=== PATIENT | male | born 1955 | race Caucasian/White ===

== ENCOUNTER 2020-06-07 16:20 | Observation (INO) | payer SELFPAY ==
[~2020-06-07] VITALS: Ht 180.3 cm; Wt 75.5 kg
[~2020-06-07 16:20] MED LIST: ABAC300; AMLO5 PO; AMOCLA875 PO; ASPI325; ASPI325 PO; CEPH500 PO; CIPRO500 MG PO; DICL25ER; DICL75ER PO; ESOM20 PO; Flagyl500 MG PO; HYDACE10B PO; HYDACE5 PO; HYDR1TAB94 PO; HYDRA25 PO; LISI20 PO; LISI5 PO; LISINOPRIL PO; MESA250ER PO; METR500 PO; Norco 10-325 T1 EACH PO; Norco 5-325 Ta1 EACH PO; OXYC5; Omeprazole20 M1 PO; PROM25 PO; Prilosec Otc20 MG PO; Roxicodone5 MG PO; SACC250C PO; SUCR1 PO; TADA10TA PO; VANC250 PO; Vancocin HCl250 MG PO; Zofran Odt4 MG SL
[2020-06-07 16:52] LABS: BASOPHILS ABSOLUTE AUTO 0.12 K/mm3 (0.00-0.23); BASOPHILS PERCENT AUTO 2 % (0-2); EOSINOPHILS ABSOLUTE AUTO 0.32 K/mm3 (0.00-0.68); EOSINOPHILS PERCENT AUTO 5 % (0-6); Hematocrit 42.4 % (37.0-53.0); IMMATURE GRAN ABSOLUTE AUTO 0.03 K/mm3 (0.00-0.10); IMMATURE GRAN PERCENT AUTO 0 % (0-1); LYMPHOCYTES ABSOLUTE AUTO 1.93 K/mm3 (0.84-5.20); LYMPHOCYTES PERCENT AUTO 29 % (21-46); MONOCYTES ABSOLUTE AUTO 0.68 K/mm3 (0.16-1.47); MONOCYTES PERCENT AUTO 10 % (4-13); Mean Corpuscular HGB 35.6 pg (26.0-34.0); Mean Corpuscular Volume 108 fL (80-100); Mean Platelet Volume 10.2 fL (9.1-12.4); NEUTROPHILS PERCENT AUTO 54 % (41-73); Platelet Count 214 K/mm3 (150-400); RDW Coefficient Variation 12.8 % (11.7-14.2); RDW Standard Deviation 51.4 fL (35.1-46.3); Red Blood Cell Count 3.93 M/mm3 (4.30-5.90); White Blood Cell Count 6.68 K/mm3 (4.00-11.30)
[2020-06-07 17:13] LABS: Alanine Aminotransfer (ALT/SGP 27 U/L (12-78); Albumin, Blood 2.7 g/dL (3.4-5.0); Albumin/Globulin Ratio 0.6 (0.8-1.8); Alk Phos 100 U/L (50-136); Anion Gap 9 mmol/L (6-16); Aspartate Aminotrans (AST/SGOT 47 U/L (12-37); Bilirubin, Total 0.4 mg/dL (0.1-1.0); Blood Urea Nitrogen 13 mg/dL (8-24); Bun/Creatinine Ratio 10.8 (12.0-20.0); CO2, Blood 24 mmol/L (21-32); Calcium, Blood 8.1 mg/dL (8.5-10.1); Chloride, Blood 106 mmol/L (98-108); Globulin, Blood 4.6 g/dL (2.2-4.0); Glomerular Filtration Rate >60 (60-); Glucose, Blood 105 mg/dL (70-99); Sodium, Blood 139 mmol/L (136-145); Total Protein, Blood 7.3 g/dL (6.4-8.2)
[2020-06-07 17:17] LABS: Ethanol (Alcohol), Blood, Med 311 mg/dL
[2020-06-07 18:58] LABS: Source, Urine Clean Catch
[2020-06-07 19:02] LABS: Appearance, Urine Clear (Clear); Bilirubin, Urine Neg (Neg); Blood, Urine Neg (Neg); Color, Urine Yellow (P-Yellow); Glucose Qualitative, Urine Neg (Neg); Ketones, Urine Neg (Neg); Leukocyte Esterase, Urine 2+ (Neg); Nitrite, Urine Neg (Neg); Protein, Urine Neg (Neg); Specific Gravity, Urine 1.015 (1.003-1.022); Urobilinogen, Urine NORM (Normal)
[2020-06-07 19:07] LABS: Bacteria Many /hpf; Red Blood Cells, Urine 0-2 /hpf (0-2); Squamous Epithelial Cells Few /hpf (Few)
[2020-06-07 19:15] LABS: U Amphetamine Screen Not Detected; U Barbituate Screen Not Detected; U Benzodiazapine Screen Not Detected; U Buprenorphine Screen Not Detected; U Cannabinoids Screen DETECTED; U Cocaine Screen Not Detected; U Methadone Screen Not Detected; U Methamphetamine Screen Not Detected; U Opiates Screen Not Detected; U Oxycodone Screen Not Detected; U Phencyclidine Screen Not Detected; U Propoxyphene Screen Not Detected
[2020-06-07 20:31] LABS: International Normalized Ratio 0.97; Prothrombin Time Results 10.4 Sec (9.7-11.5)
[2020-06-07] MEDS ORDERED: LISI20 PO (21:42)
[2020-06-07 21:44] LABS: Phosphorus, Blood 3.4 mg/dL (2.5-4.9)
--- NOTE | 2020-06-08 05:25 | NUR ---
PATIENT ARRIVED TO THE UNIT FROM ED. ORIGINALLY CAME WITH COMPLAINTS OF CP RELIEVED WITH NITRO BUT NO CP NOTED FOR MY SHIFT. HE STATES THAT HE IS LOOKING FORWARD TO GETTING ANSWERS IN THE MORNING ALTHOUGH HE'S UNAWARE OF THE PROCEDURE THAT HE IS NPO FOR. TROPONINS TRENDING UP, VSS, 1 MORE TROPONIN PENDING. CALL LIGHT WITHIN REACH, WILL CONTINUE TO MONITOR UNTIL END OF SHIFT.
[2020-06-08 08:32] LABS: BASOPHILS ABSOLUTE AUTO 0.05 K/mm3 (0.00-0.23); BASOPHILS PERCENT AUTO 1 % (0-2); EOSINOPHILS ABSOLUTE AUTO 0.23 K/mm3 (0.00-0.68); EOSINOPHILS PERCENT AUTO 3 % (0-6); Hematocrit 38.9 % (37.0-53.0); Hemoglobin 12.9 g/dL (13.5-17.5); IMMATURE GRAN ABSOLUTE AUTO 0.01 K/mm3 (0.00-0.10); IMMATURE GRAN PERCENT AUTO 0 % (0-1); LYMPHOCYTES ABSOLUTE AUTO 1.16 K/mm3 (0.84-5.20); LYMPHOCYTES PERCENT AUTO 15 % (21-46); MONOCYTES ABSOLUTE AUTO 0.84 K/mm3 (0.16-1.47); MONOCYTES PERCENT AUTO 11 % (4-13); Mean Corpuscular HGB 35.1 pg (26.0-34.0); Mean Corpuscular HGB Conc 33.2 g/dL (31.5-36.5); Mean Corpuscular Volume 106 fL (80-100); Mean Platelet Volume 10.1 fL (9.1-12.4); NEUTROPHILS ABSOLUTE AUTO 5.48 K/mm3 (1.96-9.15); NEUTROPHILS PERCENT AUTO 71 % (41-73); Platelet Count 179 K/mm3 (150-400); RDW Coefficient Variation 12.7 % (11.7-14.2); RDW Standard Deviation 49.7 fL (35.1-46.3); Red Blood Cell Count 3.67 M/mm3 (4.30-5.90); White Blood Cell Count 7.77 K/mm3 (4.00-11.30)
[2020-06-08 08:49] LABS: Anion Gap 8 mmol/L (6-16); Blood Urea Nitrogen 11 mg/dL (8-24); Bun/Creatinine Ratio 10.5 (12.0-20.0); CO2, Blood 24 mmol/L (21-32); Chloride, Blood 111 mmol/L (98-108); Creatinine, Blood 1.05 mg/dL (0.60-1.20); Glomerular Filtration Rate >60 (60-); Glucose, Blood 105 mg/dL (70-99); Potassium, Blood 4.5 mmol/L (3.5-5.5); Sodium, Blood 143 mmol/L (136-145)
--- NOTE | 2020-06-08 10:54 | NUR ---
echocardiogram complete
--- NOTE | 2020-06-08 16:26 | NUR ---
PT STATUS CHANGED TO MEDICAL WITH TELE. PT'S VITALS HAS BEEN STABLE FOR THE SHIFT HRR, NSR 90'S, BP SYSTOLIC 140'S, SATS ABOVE 95% ON ROOMAIR, DENIES CHEST PAIN SINCE THE BEGINNING OF THE SHIFT. TROP TRENDS LAST DRAWN 1300 0.126. LEXISCAN ORDER 1 DAY PROTOCOL. PT HAS SOME NAUSEA WITH SOME EMESIS THIS AM RELIVED BY ZOFRAN, ALSO HEAD ACHE RELIEVED BY TYLENOL. NO OTHER COMPLAINS. REPORT GIVEN TO ISIAH BAGLEY, PT TRANSFERRED TO 356 ALL BELONGINGS SENT WITH PT.
--- NOTE | 2020-06-08 17:49 | NUR ---
Shift Summary Patient arrived to unit at 1630 via w/c, independent in room. Calls for needs appropriately. SCD's and tele in place. Denies chest pain, however does c/o 6/10 headache. Will medicate per emar. Denies nausea and vomiting. Serial troponins completed. Patient is [place], no signs of CIWA. Plan for [place] Stress test with Lexiscan tomorrow 06/09/20. Patient settled to room with call light in reach. Will continue to monitor.
--- NOTE | 2020-06-08 22:39 | NUR ---
2040 PT LYING IN BED. DENIES ANY DISCOMFORT AT THIS TIME. PLACED SCD'S ON. NO OTHER APPARENT SIGNS OF DISTRESS. CALL LIGHT IS IN REACH.
--- NOTE | 2020-06-08 23:48 | NUR ---
PT LYING IN BED, AWAKE, DENIES NEED FOR ANYTHING AT THIS TIME. NO APPARENT SIGNS OF DISTRESS. CALL LIGHT IS IN REACH.
--- NOTE | 2020-06-09 01:46 | NUR ---
PT LYING IN BED, EYES CLOSED, APPEARS TO BE RESTING. BREATHING IS EVEN, UNLABORED. NO APPARENT SIGNS OF DISTRESS. CALL LIGHT IS IN REACH.
--- NOTE | 2020-06-09 03:34 | NUR ---
PT LYING IN BED, EYES CLOSED, APPEARS TO BE RESTING. BREATHING IS EVEN, UNLABORED. NO APPARENT SIGNS OF DISTRESS. CALL LIGHT IS IN REACH.
--- NOTE | 2020-06-09 03:35 | NUR ---
PT IS AAO X 4, ON RA. TELE SR AT 61. SCD'S. NO DISCOMFORT FOR THIS SHIFT.
--- NOTE | 2020-06-09 04:49 | NUR ---
PT REQUESTED AND RECIEVED TYLENOL FOR A HEADACHE, WILL EVAL FOR EFFECT. NO OTHER APPARENT SIGNS OF DISTRESS. CALL LIGHT IS IN REACH.
--- NOTE | 2020-06-09 05:40 | NUR ---
PT LYING IN BED, EYES CLOSED, APPEARS TO BE RESTING. BREATHING IS EVEN, UNLABORED. NO APPARENT SIGNS OF DISTRESS. CALL LIGHT IS IN REACH. NO OTHER CHANGES THIS SHIFT.
--- NOTE | 2020-06-09 05:54 | NUR ---
TELE CALLED, VOICED SHORT RUN OF V TACH. UPON ARRIVAL AT ROOM, PT APPEARED TO BE SLEEPING. HE AWAKENED, ALERT AND ORINETED, STATED "IM FINE", NO NOTED S/S ACUTE DISTRESS. CALL LIGHT IN REACH
--- NOTE | 2020-06-09 06:12 | NUR ---
0523 PCU PURCHASING DIRECTOR CALLED, PT HAD 8 SEC RUN OF VTACH THEN RYTHYM RETURNED TO SR AT 68. PT DENIED ANY SYMPTOMS. CALLED DR KAUR 1613, GOT ORDERS FOR METOPROLOL TARTRATE. WILL CONT TO MONITOR. NO OTHER APPARENT SIGNS OF DISTRESS. CALL LIGHT IN REACH.
--- NOTE | 2020-06-09 08:29 | NUR ---
VERIFIED WITH DR. QUINTERO THAT IT WAS OKAY TO GIVE BLOOD PRESSURE MEDS THIS MORNING INCLUDING METOPROLOL AND LISINOPRIL
--- NOTE | 2020-06-09 18:30 | NUR ---
Shift Summary Medicated for MONTES /10 per EMAR. Denies chest pain today. Instructed of NPO status after midnight and no caffeine, patient agreeable. PAM[place], able to understand staff better through reading lips. Up in room and in hallway independently. Pleasant to care for. Tele: NSR 70's. Macrobid on board for UTI coverage. Had shower today. Riosan scheduled for tomorrow 06/09. Will continue to monitor.
--- NOTE | 2020-06-10 06:46 | NUR ---
PT alert & active ambulating in halls multiple times without device. Denies s/sx of ETOH withdrawl or chest pain. NSR on tele completed 1st part of cardiac stress test. Medicated with tylenol for headache with helpful effect.
[2020-06-10] MEDS ORDERED: METO25 PO (18:05)
[2020-06-10] MEDS ORDERED: B-1100 M1 PO (18:06)
[2020-06-10] MEDS ORDERED: Nitrofurantoin100 M1 PO (18:06)
--- NOTE | 2020-06-10 19:03 | NUR ---
DISCHARGE INSTRUCTIONS COMPLETED AND DISCUSSED WITH PT EXPRESSING UNDERSTANDING. SCRIPTS FAXED TO [facility] TO [facility] PER HIS REQUEST.
== END 2020-06-10 18:43 | disposition home or self-care (01) ==
LOC: ER 16:20 → PCU 16:21 → ER 21:53 → PCU 21:56 → ER 21:57 → MEDS 06-08 16:26
PROVIDERS: Nurse Practitioner Acute Care; Physician Assistant; ADMIT Internal Medicine
DX: R07.9 Chest pain, unspecified (principal); R55 Syncope and collapse; N39.0 Urinary tract infection, site not specified; K21.9 Gastro-esophageal reflux disease without esophagitis; F10.129 Alcohol abuse with intoxication, unspecified; Z87.891 Personal history of nicotine dependence; Z79.899 Other long term (current) drug therapy; Z88.1 Allergy status to other antibiotic agents; Z79.82 Long term (current) use of aspirin; Y90.8 Blood alcohol level of 240 mg/100 ml or more; I10 Essential (primary) hypertension
CPT/HCPCS: 36415; 71045; 78452; 80048; 80053; 81001; 83735; 83880; 84100; 84484; 85025; 85610; 85730; 87077; 87086; 87186; 93005; 93010; 93017; 93306; 93880; 96360; 96361; 96374; 96376; 99285-25; A9270; A9270-GY; A9500; G0378; G0480; J2405; J2785; J7030

== ENCOUNTER 2021-07-11 13:17 | Observation (INO) | payer MEDICARE ==
[~2021-07-11] VITALS: Ht 177.8 cm; Wt 72.6 kg
[~2021-07-11 13:17] MED LIST changes: +B-1100 M1 PO; +METO25 PO; +Nitrofurantoin100 M1 PO
[2021-07-11 14:57] LABS: BASOPHILS ABSOLUTE AUTO 0.06 K/mm3 (0.00-0.23); BASOPHILS PERCENT AUTO 1 % (0-2); EOSINOPHILS ABSOLUTE AUTO 0.02 K/mm3 (0.00-0.68); EOSINOPHILS PERCENT AUTO 0 % (0-6); Hematocrit 41.1 % (37.0-53.0); Hemoglobin 14.3 g/dL (13.5-17.5); IMMATURE GRAN ABSOLUTE AUTO 0.05 K/mm3 (0.00-0.10); IMMATURE GRAN PERCENT AUTO 1 % (0-1); LYMPHOCYTES ABSOLUTE AUTO 0.66 K/mm3 (0.84-5.20); LYMPHOCYTES PERCENT AUTO 8 % (21-46); MONOCYTES ABSOLUTE AUTO 0.95 K/mm3 (0.16-1.47); MONOCYTES PERCENT AUTO 11 % (4-13); Mean Corpuscular HGB 38.1 pg (26.0-34.0); Mean Corpuscular HGB Conc 34.8 g/dL (31.5-36.5); Mean Corpuscular Volume 110 fL (80-100); Mean Platelet Volume 11.1 fL (9.1-12.4); NEUTROPHILS ABSOLUTE AUTO 6.62 K/mm3 (1.96-9.15); NEUTROPHILS PERCENT AUTO 79 % (41-73); Platelet Count 173 K/mm3 (150-400); RDW Coefficient Variation 13.1 % (11.7-14.2); Red Blood Cell Count 3.75 M/mm3 (4.30-5.90); White Blood Cell Count 8.36 K/mm3 (4.00-11.30)
[2021-07-11 15:07] LABS: Albumin, Blood 3.5 g/dL (3.4-5.0); Albumin/Globulin Ratio 0.7 (0.8-1.8); Bilirubin, Total 1.2 mg/dL (0.1-1.0); Calcium, Blood 8.9 mg/dL (8.5-10.1); Creatinine, Blood 2.46 mg/dL (0.60-1.20); Globulin, Blood 4.7 g/dL (2.2-4.0); Potassium, Blood 4.3 mmol/L (3.5-5.5); Total Protein, Blood 8.2 g/dL (6.4-8.2)
[2021-07-11 19:09] LABS: SARS-Cov-2 (COVID-19) PCR, MMC NEGATIVE (NEGATIVE)
[2021-07-11 19:56] LABS: PCO2 Arterial 25.1 mmHg (35-45); PO2 Arterial 82.9 mmHg (80-100); pH Blood Arterial 7.28 (7.35-7.45)
[2021-07-11 22:07] LABS: Source, Urine Clean Catch
[2021-07-11 22:17] LABS: Bilirubin, Urine Neg (Neg); Blood, Urine 2+ (Neg); Glucose Qualitative, Urine 2+ (Neg); Ketones, Urine 2+ (Neg); Leukocyte Esterase, Urine 2+ (Neg); Nitrite, Urine Neg (Neg); Protein, Urine 2+ (Neg); Urobilinogen, Urine NORM (Normal)
[2021-07-11 22:19] LABS: Appearance, Urine Clear (Clear); Color, Urine Yellow (P-Yellow)
[2021-07-11 22:23] LABS: Bacteria Many /hpf; Red Blood Cells, Urine 0-2 /hpf (0-2); Squamous Epithelial Cells Few /hpf (Few)
[2021-07-11 22:27] LABS: U Amphetamine Screen Not Detected; U Barbituate Screen Not Detected; U Benzodiazapine Screen Not Detected; U Buprenorphine Screen Not Detected; U Cannabinoids Screen DETECTED; U Cocaine Screen Not Detected; U Methadone Screen Not Detected; U Methamphetamine Screen Not Detected; U Opiates Screen DETECTED; U Oxycodone Screen Not Detected; U Phencyclidine Screen Not Detected; U Propoxyphene Screen Not Detected
--- NOTE | 2021-07-12 00:39 | NUR ---
ADMIT *LATE ENTRY* PT ARRIVED TO AROUND 2005 VIA W/C. PT ACTIVELY HAVING EMESIS UPON ARRIVAL, 350ML LIGHT GREEN/CLEAR/CLOUDY COLOR EMESIS. MEDICATED c ZOFRAN & PT HAD 300ML MORE OF EMESIS. CIWA 10 UPON ASSESSMENT FOR TREMORS, N/V & HEADACHE. GAVE ATIVAN PER ORDERS. HAS INSPIRATORY/EXPIRATORY WHEEZES, DENIES SOB. REPORTS CHRONIC 4/10 CP THAT COMES & GOES, PT HAD THIS CP UPON STANDING TO USE URINAL. WCTM.
[2021-07-12 03:09] LABS: BASOPHILS ABSOLUTE AUTO 0.03 K/mm3 (0.00-0.23); BASOPHILS PERCENT AUTO 0 % (0-2); EOSINOPHILS ABSOLUTE AUTO 0.01 K/mm3 (0.00-0.68); EOSINOPHILS PERCENT AUTO 0 % (0-6); Hematocrit 31.4 % (37.0-53.0); Hemoglobin 11.1 g/dL (13.5-17.5); IMMATURE GRAN ABSOLUTE AUTO 0.02 K/mm3 (0.00-0.10); IMMATURE GRAN PERCENT AUTO 0 % (0-1); LYMPHOCYTES PERCENT AUTO 8 % (21-46); MONOCYTES ABSOLUTE AUTO 1.04 K/mm3 (0.16-1.47); MONOCYTES PERCENT AUTO 14 % (4-13); Mean Corpuscular HGB 37.9 pg (26.0-34.0); Mean Corpuscular HGB Conc 35.4 g/dL (31.5-36.5); Mean Corpuscular Volume 107 fL (80-100); Mean Platelet Volume 10.1 fL (9.1-12.4); NEUTROPHILS ABSOLUTE AUTO 5.64 K/mm3 (1.96-9.15); NEUTROPHILS PERCENT AUTO 77 % (41-73); Platelet Count 132 K/mm3 (150-400); RDW Coefficient Variation 12.9 % (11.7-14.2); RDW Standard Deviation 50.8 fL (35.1-46.3); Red Blood Cell Count 2.93 M/mm3 (4.30-5.90); White Blood Cell Count 7.34 K/mm3 (4.00-11.30)
[2021-07-12 03:31] LABS: Bun/Creatinine Ratio 15.2 (12.0-20.0); Calcium, Blood 8.2 mg/dL (8.5-10.1); Creatinine, Blood 2.1 mg/dL (0.60-1.20); Potassium, Blood 4.2 mmol/L (3.5-5.5)
--- NOTE | 2021-07-12 06:31 | NUR ---
SHIFT SUMMARY ADMITTED FOR SYNCOPAL EPISODE. AOX4. VSS. TELE NSR @72. DENIED ANY FURTHER CP. HYPERACTIVE BT. NO FURTHER EMESIS AFTER ZOFRAN GIVEN. SPO2 >90% ON RA. HAS INSP/EXP WHEEZES T/O. REPORTS LAST ALCOHOLIC DRINK WAS ON 07/10/21. CIWA RANGING 1-10, FOR N/V, MONTES & TREMORS. LR RUNNING @75ML/HR. CALL LIGHT & BED ALARM IN PLACE.
--- NOTE | 2021-07-12 19:07 | NUR ---
PT HAS BEEN FRIENDLY AND PLEASANT ALL SHIFT. HAD MILD NAUSEA THIS MORNING, RESOLVED. NO COMPLAINTS OF PAIN, SOB, OR DIARREA. CALL LIGHT WITHIN REACH.
--- NOTE | 2021-07-13 05:47 | NUR ---
SHIFT SUMMARY AOX4 @HS. THIS AM PT STATES "WHAT TOWN AM I IN?" "WHY AM I AT THE HOSPITAL?" PT STATES HE FEELS CONFUSED, CIWA 9 FOR CONFUSION, MONTES & MILD TREMORS. GAVE 1MG IV ATIVAN, & TYLENOL. VSS. TELE NSR @72. PLAN TO HAVE ECHO & CAROTID DUPLEX TODAY. HAD NAUSEA & DRY HEAVE 1X, MEDICATED 1X c ZOFRAN. CALL LIGHT & BED ALARM IN PLACE. WCTM.
[2021-07-13] MEDS ORDERED: LISI5 PO (12:26)
[2021-07-13] MEDS ORDERED: Acetaminophen325 M1 PO (12:27)
[2021-07-13] MEDS ORDERED: METO25ER PO (12:32)
[2021-07-13] MEDS ORDERED: MULVITA PO (12:33)
[2021-07-13] MEDS ORDERED: PANT20 PO (12:34)
[2021-07-13] MEDS ORDERED: ONDA4ODT MM (12:34)
[2021-07-13] MEDS ORDERED: B-1100 M1 PO (12:35)
--- NOTE | 2021-07-13 14:30 | NUR ---
PATIENT D/C'D TO HOME VIA [facility]. RX MEDICATIONS FAXED TO [facility] IN [place]. [place] INSTRUCTIONS AND EDUCATION DISCUSSED WITH PATIENT AND COPY PROVIDED. PATIENT DENIES ANY FURTHER QUESITONS OR CONCERNS.
== END 2021-07-13 14:32 | disposition home or self-care (01) ==
LOC: ER 13:17 → ERHOLD 13:18 → MEDS 13:18
PROVIDERS: Student in an Organized Health Care Education/Training Program; ADMIT Internal Medicine
DX: R55 Syncope and collapse (principal); R07.89 Other chest pain; N17.9 Acute kidney failure, unspecified; I10 Essential (primary) hypertension; K21.9 Gastro-esophageal reflux disease without esophagitis; H91.10 Presbycusis, unspecified ear; E87.2 Acidosis; Z20.822 Contact with and (suspected) exposure to COVID-19; F10.188 Alcohol abuse with other alcohol-induced disorder; Z87.891 Personal history of nicotine dependence; Z88.8 Allergy status to other drugs, medicaments and biological substances
CPT/HCPCS: 36415; 36600; 71275; 74019; 74175; 80048; 80053; 81001; 82570; 82803; 83605; 83690; 84300; 84484; 85025; 93005; 93010; 93306; 93880; 96372; 96374-59; 96375; 96375-59; 96376; 97110; 97116; 97161; 99285-25; A9270; G0378; G0480; J1650; J2060; J2270; J2405; J7030; J7120; Q9967; U0004